=== PATIENT | male | born 1970 | race Caucasian/White ===

== ENCOUNTER 2017-06-19 07:25 | Observation (INO) | payer OTHER, MEDICAID ==
[2017-06-19] VITALS (8 sets, daily range): BP systolic 115–151; BP diastolic 65–85; PULSE 88–106; RESP 18–20; TEMP 97.1–97.8; O2SAT 95–98
[~2017-06-19] VITALS: Ht 185.4 cm; Wt 129.0 kg
[~2017-06-19 07:25] MED LIST: CETI10 PO; DICY20TA10 PO; GLIP2.5T6 PO; LORA0.5T PO; PROT40TA PO; RANI150 PO; SIME1CAP14 PO; SUCR1TAB PO; TRAM50 PO
--- NOTE | 2017-06-19 09:57 | HHI.HP ---
[facility] Non-Staff Admission Diagnosis Chest pain Diagnoses: (1) Chest pain Diagnosis: Principal Chief Complaint: Chest pain Travel History International Travel<30 Days: No Contact w/Intl Traveler <30 Da: No Traveled to Known Affected Are: No History of Present Illness Written by Claudia Ybarra, acting as scribe for Dr. Warren on 06/19/17 at 09:46. Mr. Ulloa is a 47-year-old male patient with a known medical history of fatty liver disease, GERD, prediabetes and anxiety who presented to the ED with complaints of chest pain. Patient states that the chest pain woke him up out of sleep. Pain was substernal, sharp in nature, and radiated to his back and neck. Admits to associated diaphoresis, dyspnea, nausea and lightheadedness. Denies any vomiting. Patient states this pain occurs at random times of the day, does not relate to certain activities. Denies any aggravating or relieving factors. Patient does admit to hospital admission 1.5 years ago for similar complaints and at that time had a cardiac work up with stress testing which was reportedly unremarkable. Patient also had a GI workup at that time with EGD and colonoscopy which showed fatty liver disease. Does take OTC Prilosec and Zantac as needed, denies any recent GI complaints. Denies any recent nausea, vomiting or diarrhea. Denies any recent fever, chills, cough, shortness of breath, headache or dysuria. Review of Systems Constitutional: DENIES: Chills Eyes: DENIES: Blurred vision, Vision loss Respiratory: COMPLAINS OF: Shortness of breath, DENIES: Cough Cardiovascular: COMPLAINS OF: Chest pain, Palpitations, DENIES: Syncope Gastrointestinal: COMPLAINS OF: Abdominal pain, Nausea, DENIES: Black stools, Constipation, Diarrhea, Vomiting Psychiatric: COMPLAINS OF: Anxiety Except as stated in HPI: all other systems reviewed are Neg Past Family Social History Past Medical History GERD Fatty liver disease Prediabetes Anxiety Past Surgical History EDG x 3 Colonoscopy x 2. Reported Medications Active Ultram (Tramadol HCl) 50 Mg Tab 50 Mg PO Q6H PRN FOR PAIN Zantac (Ranitidine HCl) 150 Mg Tab 150 Mg PO BID 90 Days Reported Protonix (Pantoprazole Sodium) 40 Mg Tabdr 40 Mg PO DAILY Phazyme Maximum Strength (Simethicone) 250 Mg Cap 250 Mg PO DAILY Cetirizine Hcl 10 Mg Tab 10 Mg PO Lorazepam 0.5 Mg Tab 0.5 Mg PO BID Dicyclomine 20 mg (Dicyclomine HCl) 20 Mg Tab 20 Mg PO QID Sucralfate 1 Gm Tab 1 Gm PO QID Take with water on an empty stomach. To reduce the potential of adversely affecting the absorption of other drugs, take other drugs 2 hours prior to Sucralfate. Glipizide Er (Glipizide) 2.5 Mg Tab 2.5 Mg PO DAILYAC Allergies: Coded Allergies: iodine (Unverified Allergy, Unknown, 06/19/17) MUSCLE SPASMS potassium iodide (Unverified Allergy, Unknown, 06/19/17) MUSCLE SPASMS povidone-iodine (Unverified Allergy, Unknown, 06/19/17) MUSCLE SPASMS sodium iodide (Unverified Allergy, Unknown, 06/19/17) MUSCLE SPASMS sodium iodide (Unverified Allergy, Unknown, 06/19/17) MUSCLE SPASMS Family History Denies any significant family medical history. Social History Denies any tobacco, alcohol or illicit drug use. Physical Exam Vital Signs Vital Signs Date Time Temp Pulse Resp B/P (MAP) Pulse Ox O2 Delivery O2 Flow Rate FiO2 06/19/17 08:00 97.8 102 20 139/85 (103) 96 Physical Exam GENERAL: This is a well-nourished, well-developed male patient, lying in bed with no complaints of chest pain, in no apparent distress, on supplemental O2. SKIN: No rashes, ecchymoses or lesions. Warm and clammy. HEAD: Atraumatic. Normocephalic. Pupils equal round and reactive. Extraocular motions intact. No scleral icterus. No injection or drainage. Nose without bleeding. Airway patent. NECK: Trachea midline. No JVD. Supple. CARDIOVASCULAR: Regular rate and rhythm without murmurs, gallops, or rubs. RESPIRATORY: Clear to auscultation. Breath sounds equal bilaterally. No wheezes , rales, or rhonchi. GASTROINTESTINAL: Abdomen soft, round, non-tender, nondistended. No guarding. MUSCULOSKELETAL: Extremities without clubbing, cyanosis, or edema. No joint tenderness, effusion, or edema noted. NEUROLOGICAL: Awake and alert. Cranial nerves II through XII intact. Motor and sensory grossly within normal limits. Five out of 5 muscle strength in all muscle groups. Normal speech. Caprini VTE Risk Assessment Caprini VTE Risk Assessment: No/Low Risk (score <= 1) Caprini Risk Assessment Model Point Value = 1 Point Value = 2 Point Value = 3 Point Value = 5 Age 41-60 Minor surgery BMI > 25 kg/m2 Swollen legs Varicose veins or History of unexplained or recurrent spontaneous Oral contraceptives or hormone replacement Sepsis (< 1 month) Serious lung disease, including pneumonia (< 1 month) Abnormal pulmonary function Acute myocardial infarction Congestive heart failure (< 1 month) History of inflammatory bowel disease Medical patient at bed rest Age 61-74 Arthroscopic surgery Major open surgery (> 45 min) Laparoscopic surgery (> 45 min) Malignancy Confined to bed (> 72 hours) Immobilizing plaster cast Central venous access Age >= 75 History of VTE Family history of VTE Factor V Leiden Prothrombin [id number] Lupus anticoagulant Anticardiolipin antibodies Elevated serum homocysteine Heparin-induced thrombocytopenia Other congenital or acquired thrombophilia Stroke (< 1 month) Elective arthroplasty Hip, pelvis, or leg fracture Acute spinal cord injury (< 1 month) Prophylaxis Regimen Total Risk Factor Score Risk Level Prophylaxis Regimen 0-1 Low Early ambulation 2 Moderate Order ONE of the following: *Sequential Compression Device (SCD) *Heparin 5000 units SQ BID 3-4 Higher Order ONE of the following medications: *Heparin 5000 units SQ TID *Enoxaparin/Lovenox 40 mg SQ daily (WT < 150 kg, CrCl > 30 mL/min) *Enoxaparin/Lovenox 30 mg SQ daily (WT < 150 kg, CrCl > 10-29 mL/min) *Enoxaparin/Lovenox 30 mg SQ BID (WT < 150 kg, CrCl > 30 mL/min) AND/OR *Sequential Compression Device (SCD) 5 or more Highest Order ONE of the following medications: *Heparin 5000 units SQ TID (Preferred with Epidurals) *Enoxaparin/Lovenox 40 mg SQ daily (WT < 150 kg, CrCl > 30 mL/min) *Enoxaparin/Lovenox 30 mg SQ daily (WT < 150 kg, CrCl > 10-29 mL/min) *Enoxaparin/Lovenox 30 mg SQ BID (WT < 150 kg, CrCl > 30 mL/min) AND *Sequential Compression Device (SCD) Assessment and Plan Problem List: (1) Chest pain ICD Code: R07.9 - Chest pain, unspecified Status: Acute Plan: Patient admitted to the chest pain center. Serial EKGs and serial troponins. Troponins flat. EKGs reviewed showing NSR, HR WNL, slight RBBB, no effect on ST segment. Supportive care. Supplemental O2 to keep sats >92%. Code Status This note was transcribed by scribe [Claudia Ybarra]. I, Dr. Ruddy Warren personally performed the history, physical exam, and medical decision making; and confirmed the accuracy of the information in the transcribed note. Authenticated by Dr. Ruddy Warren on 06/19/17 at 11:47. Claudia Ybarra Jun 19, 2017 09:57 Ruddy Warren MD Jun 19, 2017 11:47
--- NOTE | 2017-06-19 10:37 | EKG ---
Date Performed: 06/19/2017 Time Performed: 09:17:37 PTAGE: 47 years EKG: SINUS TACHYCARDIA LEFT AXIS DEVIATION VOLTAGE CRITERIA FOR LVH PROBABLE LATERAL MYOCARDIAL INFARCTION ABNORMAL ECG PREVIOUS TRACING : 04/05/2016 11.23 No change from previous tracing noted. DOCTOR: Dawit Cole Interpretating Date/Time 06/19/2017 10:36:48
[2017-06-19] MEDS ORDERED: ONDANSETRON HCL 4 MG/2 ML VIAL IVP PRN (11:15)
[2017-06-19] MEDS ORDERED: MORPHINE SULFATE 4 MG/ML INJ IV PUSH PRN ×2 (11:15)
[2017-06-19] MEDS ORDERED: SODIUM CHLORIDE 0.9% FLUSH 10 ML FLUSH IV FLUSH PRN (11:15)
[2017-06-19] MEDS ORDERED: MAGNESIUM HYDROXIDE SUSP 30 ML CUP PO PRN (11:15)
[2017-06-19] MEDS ORDERED: ONDANSETRON HCL 4 MG/2 ML VIAL IV PUSH PRN (11:15)
[2017-06-19] MEDS ORDERED: NALOXONE HCL 0.4 MG/ML AMP IV PUSH PRN (11:15)
[2017-06-19] MEDS: ACETAMINOPHEN 325 MG TAB PO PRN ×2 (12:15→20:16)
[2017-06-19] MEDS ORDERED: REGADENOSON INJ 0.4 MG/5 ML SYR IV ONE (13:18)
--- NOTE | 2017-06-19 15:22 | RADRPT ---
EXAM DATE/TIME: 06/19/2017 12:59 [place] COMPARISON: No previous studies available for comparison. INDICATIONS : Substernal chest pain. Angina. DOSE: 35 mCi Tc99m Myoview at stress. 11 mCi Tc99m Myoview at rest. 0.4 mg Lexiscan STRESS SYMPTOMS: Head pressure. EJECTION FRACTION: 60% MEDICAL HISTORY : Diabetes mellitus type 2. SURGICAL HISTORY : None. ENCOUNTER: Initial ACUITY: 1 day PAIN SCALE: 4/10 LOCATION: Substernal chest TECHNIQUE: The patient underwent pharmacologic stress with infusion of prescribed dose. Continuous ECG tracing was monitored during stress. Gated SPECT imaging was performed after stress and conventional SPECT i maging was performed at rest. The examination was performed on a SPECT/CT scanner, both attenuation and non-corrected datasets were reviewed. FINDINGS: DISTRIBUTION: The maximum perfused segment at stress is in the septal wall. PERFUSION STUDY: The pattern of perfusion at stress shows 20% redistribution in the high and mid lateral wall. GATED STUDY: There is intact wall motion and thickening without hypokinetic or dyskinetic segments. CONCLUSION: 1. Redistribution in the high lateral wall concerning for area of ischemia in the circumflex territor y. 2. Adequate wall motion throughout with estimated ejection fraction of 60%. RISK CATEGORY: Intermediate (1-3% Annual Mortality Rate) Ted Goldman MD on June 19, 2017 at 15:06 Board Certified Radiologist. This report was verified electronically.
--- NOTE | 2017-06-19 16:06 | TR ---
Date Performed: 06/19/2017 Time Performed: 13:27:56 DOCTOR: Yvon Davis DRUG LIST: CLINICAL HISTORY: REASON FOR TEST: REASON FOR ENDING: OBSERVATION: CONCLUSION: Lexiscan stress test was performed under standard four minute protocol. Radionuclid e was injected one minute prior to ending the test. No electrocardiographic abormalities were present to suggest ischemia. Nuclear imaging and interpretation are pending. COMMENTS:
--- NOTE | 2017-06-19 18:43 | MB ---
cc: ELIZ NEFF DATE OF CONSULTATION 06/19/[address] Warren REASON FOR CONSULTATION Evaluate for shortness of breath, hypoxia. HISTORY OF THE PRESENT ILLNESS Mr. Ulloa is a pleasant 47-year-old obese male with a history of chest pain going on for the last 1 year or so. His chest pain is mostly at rest. He finally came to the hospital because around 11 o'clock he woke up with chest pain which was mild chest pain, not radiating to anywhere. He felt very weak, dizzy and tired. He did not have any syncope or presyncope. Because of his worsening of symptoms he came to the hospital. He had a workup done. His troponin was slightly high and he had a myocardial perfusion test done, which shows he has redistribution in the high lateral wall concerning for area of ischemia. The patient was transferred to [facility] for cardiac catheterization. He denies any wheezing. Denies any asthma, emphysema. No hypertension or diabetes. He does admit that while he is at work sometimes he feels very hot at that time his speech gets slurred and he starts having change in his voice and has stuffy ears but it lasts hours or so. Once he takes a cold shower his feeling gets better. The patient has been to the hospital multiple times for this chest pain, three times in this hospital, two times in [place] and [facility] and he also has been to [facility] where primarily he was being worked up for his LANGE. PAST MEDICAL HISTORY Significant for: 1. A history of liver disease secondary to LANGE. 2. History of hypertension. MEDICATIONS He is currently taking: Morphine for pain. ALLERGIES HE IS ALLERGIC TO IODINE. SOCIAL HISTORY He is , works in construction. History of smoking in the past. History of alcohol use which he quit 2 years ago. No drug use. He works in construction. FAMILY HISTORY He is . He has one child. REVIEW OF SYSTEMS He has lost about 40 pounds of weight on his own which he has gained back now. He does admit to snoring, increased tired during daytime. No known asthma. No coronary artery disease. No deep venous thrombosis or pulmonary embolism. No seizure, stroke or epilepsy. PHYSICAL EXAMINATION GENERAL: Well-developed, well-nourished male not in any acute distress. VITAL SIGNS: Blood pressure 136/81, heart rate 102, respirations 20, temperature 97.1. HEENT: Examination unremarkable. NECK: Supple. JVP not raised. CHEST: Air entry equal bilaterally. No rhonchi. CARDIOVASCULAR: S1, S2 normal. ABDOMEN: Benign. EXTREMITIES: No edema. CENTRAL NERVOUS SYSTEM: Alert and oriented times three. No focal deficit. LABORATORY FINDINGS WBC 6.5, hemoglobin 14.4, hematocrit 41.9. MCV 90, platelet count 258. Sodium 144, potassium 3.7, chloride 109, CO2 29, BUN 13. Creatinine 0.9. IMPRESSION 1. Chest pain. Need to rule out ischemia. 2. Shortness of breath due to mild hypoxia. No pulmonary embolism. Possible from the underlying restrictive lung disease. 3. Obesity hypoventilation syndrome. 4. History suggestive of sleep apnea. PLAN He is going to go for cardiac catheterization. Will Check ABG PFT He will also need a sleep study as an outpatient. Further treatment will depend on the course in the hospital. Thank you Dr. Warren for this consultation. MD JAMEL Reilly/LUDMILA /6:09 PM /6:25 PM [place]
[2017-06-19 20:10] LABS: BLOOD GAS BASE EXCESS 1.5 mmol/L (-2-2); BLOOD GAS CARBOXYHEMOGLOBIN 1.2 % (0-4); BLOOD GAS HCO3 26 mmol/L (22-26); BLOOD GAS METHEMOGLOBIN 1.1 % (0-2); BLOOD GAS O2 HGB SATURATION 92 % (90-100); BLOOD GAS OXYGEN CONTENT 19.3 Vol % (12.0-20.0); BLOOD GAS PCO2 41 mmHG (38-42); BLOOD GAS PO2 72 mmHG (61-120); BLOOD GAS TOTAL HGB 14.8 G/DL (12.0-16.0); CRITICAL VALUE NO; DRAW SITE LT RADIAL; FIO2 21 %; NUMBER OF ARTERIAL PUNCTURES 1; STAT NO; TEMP CORR TO 98.6; ULNAR PULSE PRESENT
[2017-06-19] MEDS: SODIUM CHLORIDE 0.9% FLUSH 10 ML FLUSH IV FLUSH SCH (20:16)
[2017-06-20] VITALS (15 sets, daily range): BP systolic 107–124; BP diastolic 55–77; PULSE 75–96; RESP 18; TEMP 97.6–98; O2SAT 96–98
[2017-06-20 05:47] LABS: AUTOMATED NEUTROPHIL # 11.1 TH/MM3 (1.8-7.7); BASOPHIL % 0.2 % (0.0-2.0); EOSINOPHIL % 0.2 % (0.0-4.0); HEMATOCRIT 41.3 % (39.0-51.0); HEMO FLAGS DIFF FINAL; LYMPH % 15.6 % (9.0-44.0); LYMPHOCYTE # 2.3 TH/MM3 (1.0-4.8); MEAN CORPUSCULAR HEMOGLOBIN 30.9 PG (27.0-34.0); MONO % 7.3 % (0.0-8.0); NEUT % 76.7 % (16.0-70.0); PLATELET COUNT 262 TH/MM3 (150-450); RED BLOOD COUNT 4.55 MIL/MM3 (4.50-5.90); RED CELL DISTRIBUTION WIDTH 13.2 % (11.6-17.2); WHITE BLOOD COUNT 14.4 TH/MM3 (4.0-11.0)
[2017-06-20 05:57] LABS: ALT (GPT) 41 U/L (12-78); ANION GAP 8 MEQ/L (5-15); AST (GOT) 17 U/L (15-37); BICARBONATE 28.1 MEQ/L (21.0-32.0); BLOOD UREA NITROGEN 14 MG/DL (7-18); CHLORIDE 104 MEQ/L (98-107); GLOMERULAR FILTRATION RATE 109 ML/MIN (>89); SODIUM (NA) 140 MEQ/L (136-145)
[2017-06-20 05:59] LABS: ALKALINE PHOSPHATASE 72 U/L (45-117); TOTAL BILIRUBIN ADULT 1.2 MG/DL (0.2-1.0)
[2017-06-20] MEDS ORDERED: LORA1TAB12 PO (06:19)
[2017-06-20] MEDS ORDERED: PRIL20TA2 (06:21)
[2017-06-20] MEDS ORDERED: CLAR10CA3 PO (06:22)
[2017-06-20] MEDS: SODIUM CHLORIDE 0.9% FLUSH 10 ML FLUSH IV FLUSH SCH (08:07)
[2017-06-20] MEDS ORDERED: diphenhydrAMINE HCL 50 MG CAP PO ONE (08:45)
[2017-06-20] MEDS ORDERED: HYDROCORTISONE SOD SUCCINATE 100 MG VIAL IV PUSH ONE (09:00)
--- NOTE | 2017-06-20 09:07 | HHI.PR ---
Subjective Remarks Pt was admitted to [facility] on 06/19/17 He had an abnormal Lexiscan which noted redistribution in the high lateral wall concerning for area of ischemia in the circumflex territory. Adequate wall motion throughout with estimated ejection fraction of 60% Pt was transferred to [facility] for Cardiology evaluation and [facility] Objective Vitals Vital Signs Date Time Temp Pulse Resp B/P (MAP) Pulse Ox O2 Delivery O2 Flow Rate FiO2 06/20/17 08:05 78 06/20/17 07:40 97.9 75 18 124/77 (93) 98 06/20/17 07:40 85 06/20/17 06:11 80 06/20/17 05:03 85 06/20/17 04:02 85 06/20/17 03:28 97.6 90 18 114/58 (76) 96 06/20/17 03:00 83 06/20/17 02:02 81 06/20/17 01:05 82 06/19/17 23:55 18 06/19/17 23:00 88 06/19/17 22:30 97.7 106 18 151/83 (105) 97 06/19/17 21:20 20 06/19/17 20:37 96 Nasal Cannula 2.00 06/19/17 20:00 97.5 103 20 115/75 (88) 97 06/19/17 16:00 97.1 102 20 136/81 (99) 98 06/19/17 12:00 97.2 101 18 119/65 (83) 95 06/19/17 09:47 100 Result Diagram: 06/20/1751906/20/17519 Other Results Laboratory Tests Test 06/19/17 09:15 06/19/17 19:55 06/20/17 05:20 Troponin I LESS THAN 0.02 NG/ML Blood Gas Puncture Site LT RADIAL Blood Gas Patient Temperature 98.6 Blood Gas HCO3 26 mmol/L Blood Gas Base Excess 1.5 mmol/L Blood Gas Oxygen Saturation 92 % Arterial Blood pH 7.41 Arterial Blood Partial Pressure CO2 41 mmHG Arterial Blood Partial Pressure O2 72 mmHG Arterial Blood Oxygen Content 19.3 Vol % Arterial Blood Carboxyhemoglobin 1.2 % Arterial Blood Methemoglobin 1.1 % Blood Gas Hemoglobin 14.8 G/DL Blood Gas Inspired Oxygen 21 % White Blood Count 14.4 TH/MM3 Red Blood Count 4.55 MIL/MM3 Hemoglobin 14.0 GM/DL Hematocrit 41.3 % Mean Corpuscular Volume 91.0 FL Mean Corpuscular Hemoglobin 30.9 PG Mean Corpuscular Hemoglobin Concent 34.0 % Red Cell Distribution Width 13.2 % Platelet Count 262 TH/MM3 Mean Platelet Volume 7.3 FL Neutrophils (%) (Auto) 76.7 % Lymphocytes (%) (Auto) 15.6 % Monocytes (%) (Auto) 7.3 % Eosinophils (%) (Auto) 0.2 % Basophils (%) (Auto) 0.2 % Neutrophils # (Auto) 11.1 TH/MM3 Lymphocytes # (Auto) 2.3 TH/MM3 Monocytes # (Auto) 1.1 TH/MM3 Eosinophils # (Auto) 0.0 TH/MM3 Basophils # (Auto) 0.0 TH/MM3 CBC Comment DIFF FINAL Differential Comment Blood Urea Nitrogen 14 MG/DL Creatinine 0.77 MG/DL Random Glucose 111 MG/DL Total Protein 7.0 GM/DL Albumin 3.5 GM/DL Calcium Level 8.6 MG/DL Alkaline Phosphatase 72 U/L Aspartate Amino Transf (AST/SGOT) 17 U/L Alanine Aminotransferase (ALT/SGPT) 41 U/L Total Bilirubin 1.2 MG/DL Sodium Level 140 MEQ/L Potassium Level 4.0 MEQ/L Chloride Level 104 MEQ/L Carbon Dioxide Level 28.1 MEQ/L Anion Gap 8 MEQ/L Estimat Glomerular Filtration Rate 109 ML/MIN Imaging Last Impressions Myocardial Perfusion Scan Nuc Med 06/19/17 0000 Signed Impressions: Service Date/Time: Monday, June 19, 2017 12:59 - CONCLUSION: 1. Redistribution in the high lateral wall concerning for area of ischemia in the circumflex territory. 2. Adequate wall motion throughout with estimated ejection fraction of 60%%. RISK CATEGORY: Intermediate (1-3%% Annual Mortality Rate) Ted Goldman MD A/P Problem List: (1) Chest pain ICD Codes: R07.9 - Chest pain, unspecified Status: Acute Plan: - Pt is a 47 y/o male with fatty liver, GERD, prediabetes and anxiety who presented to the ED at [facility] on 06/19/17 with complaints of chest pain. The chest pain woke him up out of sleep, described as substernal, sharp in nature, and radiated to his back and neck. +Associated diaphoresis, dyspnea, nausea and lightheadedness. Does not relate to certain activities. - Patient was admitted to the chest pain center. - Serial troponin were negative. - EKGs reviewed showing NSR, HR WNL, slight RBBB, no effect on ST segment. - Lexiscan (06/19) --> Redistribution in the high lateral wall concerning for area of ischemia in the circumflex territory. Adequate wall motion throughout with estimated ejection fraction of 60% - Pt was transferred to [facility] for Cardiology evaluation and [facility] - Pain control PRN - Antiemetics PRN - Await [facility] today - Supportive care (2) Hypoxia ICD Codes: R09.02 - Hypoxemia Plan: - Pt with some complaints of SOB and noted to be hypoxic requiring supplemental O2 - Pulmonary was consulted - Ischemic workup in progress - Pt felt to likely have some degree of restrictive lung disease/obesity hypoventilation syndrome/YAJAIRA - PFTs - Sleep study as an outpt Assessment and Plan Patient examined. Assessment and plan formulated with Norma Fregoso PA-C. I agree with the above. [facility] (06/20/17) with Dr. Pritchard. Angiographically normal study. Pt denies continued chest pain and requests discharge to home. PFTs performed by NOT interpreted. - obtain Holter. Pt can complete study at home & return device to [place]. Discharge to home today. f/u with PCP, Dr. Jennie Woo in 1 week. f/u with Dr. Chavarria in 2 weeks. Pt needs outpt sleep apnea testing. Problem Qualifiers (1) Chest pain: Qualified Codes: R07.9 - Chest pain, unspecified Norma Fregoso Jun 20, 2017 09:07 Sony Rodriguez DO Jun 20, 2017 15:15
[2017-06-20] MEDS ORDERED: HEPARIN SODIUM - IV 10,000 UNITS/10 ML VIAL ONE (09:38)
[2017-06-20] MEDS ORDERED: MIDAZOLAM HCL 2 MG/2 ML VIAL ONE (09:38)
[2017-06-20] MEDS ORDERED: HEPARIN-NS/PF INJ 1,000 ML ONE (09:38)
[2017-06-20] MEDS ORDERED: NITROGLYCERIN INJ 5 ML ONE (09:40)
--- NOTE | 2017-06-20 09:55 | MB ---
cc: DALE TENA DATE OF CONSULTATION: 06/20/2017 REASON FOR CONSULTATION Chest pain, abnormal stress test. HISTORY OF PRESENT ILLNESS This 47-year-old gentleman has a history of nonalcoholic steatohepatitis in addition to prediabetes. He presented to the emergency department with complaints of chest pain and presyncope. He states they he awoke yesterday evening with acute onset of substernal chest pain radiating towards his neck. It was associated with diaphoresis, nausea, lightheadedness and dyspnea. He states over the course of the past few months he has had several of these episodes, some are with exertion, some are nonexertional. He came into the emergency department at [place] and was admitted. CTA of the chest was unremarkable for unremarkable for pulmonary embolism. A stress test was performed which was abnormal. He was transferred to the [facility] for consideration of cardiac catheterization. PAST MEDICAL HISTORY 1. GERD. 2. LANGE (nonalcoholic steatohepatitis). 3. Prediabetes. 4. Anxiety. MEDICATIONS Reported medications: 1. Zantac. 2. Ultram. ALLERGIES IODINE. FAMILY HISTORY Denies any family history of early coronary disease or sudden cardiac . SOCIAL HISTORY Denies alcohol, tobacco or drug use. REVIEW OF SYSTEMS A 12-point review of systems was performed and negative unless otherwise noted in the history of present illness. PHYSICAL EXAMINATION VITAL SIGNS: Temperature 97, pulse 93, blood pressure 124/77 mmHg. GENERAL: Alert and oriented x3, in no acute distress. HEENT: Pupils are reactive to light and accommodation. Extraocular movements are intact. NECK: No jugular venous distention. No thyromegaly. No lymphadenopathy. No carotid bruits. LUNGS: Clear to auscultation bilaterally. CARDIOVASCULAR: Regular rate and rhythm without murmurs, rubs or gallops. ABDOMEN: Soft, nontender, nondistended. Good bowel sounds. No hepatosplenomegaly. EXTREMITIES: No clubbing, cyanosis or edema. Good peripheral pulses. NEUROLOGIC: Cranial nerves intact. Motor and sensory grossly intact. LABORATORY WBC 14.4, hemoglobin 14, platelet count 262. Sodium 140, potassium 4.0, BUN 14, creatinine 0.77/ Troponins negative. STRESS TEST High lateral wall ischemia, intermediate risk study, normal ejection fraction. PLAN Given the patient's symptoms in addition to abnormal stress test results, we discussed options which include cardiac catheterization. The patient is agreeable. I will make him n.p.o. after midnight. The risks, benefits and alternatives were discussed with the patient. Will continue with current medical therapy. MD BETTY Jo/GOYO /9:41 AM /9:51 AM
--- NOTE | 2017-06-20 10:21 | CATHPROC ---
[facility] HIS Report Study Information Study Number Admission Scheduled Start Study Start [id number] Jun 19 2017 4:28PM 06/20/2017 Jun 20 2017 9:37AM [place] [facility] Cardiac Catheterization Admit Source Facility Department Other [facility] - Electrodynamicist Physician and Clinical Staff Initial Mitul Huynh Kiss Setter Hand Arthur ÁlvarezRN Recorder Judit Olmedo,RT(R) Recorder Norma Stephens,LOS Scrub Didi Enrique,STOCK SPECULATOR TECH2 Procedures Performed Procedure Location (Site) Vessel Name Coronary Angiograms LCA Left Coronary Coronary Angiograms RCA Right Coronary L Heart Cath Wire insertion Radial (right) Radial Art. Equipment Time Snowboard Instructor Description Size Mfg Part Number Used/Scraped TRANSDUCER, TRUWAVE [id number] 09:43 ATKINS MESSINA * Used W/STOCKCOCK *[id number] *[id number] *[id number] 09:43 A's Child PACK, CCL CUSTOM * Used *[id number] 09:43 [employer]'s Child SUPPORT, ARTERIAL ADULT [id number] *[id number] Used [id number] 09:43 Wagon PACER PEN, SKIN DUAL W/ RULER * Used *[id number] BAND, RADIAL COMPRESSION TR [id number] 10:15 Seriously 29CM Used LARGE 29 *[id number] SHEATH, FR6 RADIAL PRELUDE 09:43 Seriously FR 6 [id number] Used EASE 11CM [id number] 09:43 Seriously WIRE, EXCHANGE 260CM 3MMJ 260CM Used *[id number] 09:43 NYCOMED OMNIPAQUE, 350 MG, 150ML 150ML [id number] Used [id number] 09:43 [facility] BLANKET,WARM AIR CCL * Used *[id number] History: Current Medications Medication Dosage/Unit Route Frequency Last Date/Time Taken Glypizide 2.5 mg History: Allergies Allergy Reaction potassium iodide sodium iodide iodine povidone-iodine History: Risk Factors Family History of Hypertension Dyslipidemia Previous ID Previous Heart Failure Premature CAD Yes No No No No Prior Valve Prior PCI Prior CABG Surgery No No No Cerebrovascular Peripheral Artery Chronic Lung On Dialysis Diabetes Disease Disease Disease No No No No No History: Symptoms/Diagnosis Selection Items Chest pain History: Stress Tests Stress or Imaging Studies Performed Yes Standard Exercise Stress Test No Stress Echo No Stress Test SPECT Stress Test SPECT Result Stress Test SPECT Ischemia Risk/Extent Yes Positive Intermediate Stress Test CMR No Cardiac CTA Coronary Calcium Score No No History: Other Disease Selection Items HTN History: Other Current Smoker No Labs Hgb (g/dl) Hct (%) WBC (l/cumm) Platelets (thousands) 11.60-17.00 35.00-51.00 4.00-11.00 150.00-450.00 14.0 41.3 14.4 262 Glucose (mg/dl) BUN (mg/dl) Creatinine (mg/dl) BUN:Creatinine (1:x) 74.00-106.00 7.00-18.00 0.50-1.30 10.00-20.00 111 14 0.7 20 Na (meq/l) K (meq/l) 136.00-145.00 3.50-5.10 140 4 Troponin I (ng/ml) CPK-MB (ng/ML) 0.02-0.05 0.50-3.60 0.02 Not Drawn Medication Medication Total Dose (Bolus/Oral) Medication Total Dosage/Unit 1% XYLOCAINE 5 mL FENTANYL 50 mcg HEPARIN 5000 units RADIAL COCKTAIL 1 mL (Bolus) VERSED 1 mg Medications (Bolus/Oral) Medication Time Given Dosage/Unit Administered By Reason VERSED 06/20/2017 9:59:00 AM 1 mg Arthur Álvarez 1 mg VERSED given in lab by Arthur Álvarez RN in Right Antecubital via Peripheral IV. Ordered by Mitul [place]. FENTANYL 06/20/2017 10:00:00 AM 50 mcg Arthur Álvarez 50 mcg FENTANYL given in lab by Arthur Álvarez RN in Right Antecubital via Peripheral IV. Ordered by Mitul Pritchard. 1% XYLOCAINE 06/20/2017 10:01:54 AM 5 mL Mitul Pritchard 5 mL 1% XYLOCAINE given in lab by Mitul Pritchard in Right Radial via Subcutaneous. Ordered by Mitul Pritchard. Ntg 200mcg Verapamil 2.5mg Heparin RADIAL COCKTAIL 06/20/2017 10:06:17 AM 1 mL (Bolus) Mitul Pritchard 2000U 1 mL (Bolus) RADIAL COCKTAIL given in lab by Mitul Pritchard in Right Radial via Radial. Using [Soluti on Name]. Ordered by Mitul Pritchard. Reason: Nitro 200mcg HEPARIN 06/20/2017 10:06:56 AM 5000 units Arthur Álvarez 5000 units HEPARIN given in lab by Arthur Álvarez RN in Right Radial via Peripheral IV. Ordered by Mitul Andre. with radial cocktail Medication (Drip) Medication Time Given Dosage/Unit Concentration/Unit Diluent (ml) Solutio n IV Solutions 06/20/2017 9:39:25 AM 0 mL (IV) 1000 NaCl .9 Patient arrived on IV Solutions in Right Antecubital via Peripheral IV. Pump/Drip Flow = 20 ml/hr usi ng NaCl .9. Chronological Log Time Study Chronological Log 9:30:00 Patient arrived via Bed. 9:39:06 Patient Name, D.O.B, / Armband Verified By R.N. Vitals capture started with the following parameters, Patient=Adult, Interval=5 min, Initial Pr euqrpu=532 mmHg, 9:39:07 Deflation Rate=5 mmHg, Cuff placed on Left Arm 9:39:08 Consent signed by the physician and the patient and verified by the Electrodynamicist staff. 9:39:09 Pre-op and post- op instructions given; patient acknowledges understanding of instructions. 9:39:10 Verbal Stimulation=2 Physical Stimulation=2 Airway=2 Respiration=2 TOTAL=8. (0=absent, 1=shen ited, 2=present) 9:39:11 Allens test performed on the right radial and ulnar artery. 9:39:12 Patient has been NPO for Less than 6Hrs. 9:39:12 Skin Breakdown-none 9:39:14 Patient Warmer Placed on the Table. 9:39:17 A # 20 IV was noted in the Antecubital (right). Grade = 0 9:39:25 Patient arrived on IV Solutions in Right Antecubital via Peripheral IV. Pump/Drip Flow = 20 ml/hr using NaCl .9. 9:39:43 Reference ECG taken 9:40:10 HR=87 bpm, PDMA=547/75 mmhg, SpO2=99.0 %, Resp=18 B/min, Pain=0, Radha=10, Garibay=2 9:43:22 Right Radial and groin(s) prepped with 2% chlorhexidine, and draped after a 3 min. waiting t erasmo. 9:43:31 MD arrived. 9:45:07 HR=90 bpm, MCHY=530/77 mmhg, SpO2=98.0 %, Resp=8 B/min, Pain=0, Radha=10, Garibay=2 9:50:02 HR=93 bpm, WGKN=752/75 mmhg, EyG6=786.0 %, Resp=8 B/min, Pain=0, Radha=10, Garibay=2 9:50:36 Pressure channel 1 zeroed. 9:55:05 HR=86 bpm, HDIG=267/69 mmhg, SpO2=98.0 %, Resp=0 B/min, Pain=0, Radha=10, Garibay=2 9:59:00 1 mg VERSED given in lab by Arthur Álvarez RN in Right Antecubital via Peripheral IV. Ordere d by Mitul Pritchard. 10:00:00 50 mcg FENTANYL given in lab by Arthur Álvarez RN in Right Antecubital via Peripheral IV. O rdered by Mitul Pritchard. 10:00:02 HR=90 bpm, GHTA=808/70 mmhg, SpO2=99.0 %, Resp=0 B/min, Pain=0, Radha=10, Garibay=2 Time Out. Correct patient, correct procedure, correct physician, power injector loaded with con trast with surgical team 10:01:19 present. Time Out Concurred by MD and individual staff in procedure. 10:01:52 Case Start 10:01:54 5 mL 1% XYLOCAINE given in lab by Mitul Pritchard in Right Radial via Subcutaneous. Ordered by Mitul Pritchard. 10:04:50 Access site was Right Radial Artery. 10:05:03 HR=88 bpm, MLKS=385/64 mmhg, Resp=9 B/min, Pain=0, Radha=10, Garibay=2 1 mL (Bolus) RADIAL COCKTAIL given in lab by Mitul Pritchard in Right Radial via Radial. Using [ Solution Name]. 10:06:17 Ordered by Mitul Pritchard. Reason: Nitro 200mcg A SHEATH, FR6 RADIAL PRELUDE EASE 11CM FR 6 was advanced into the Radial (right) using the Perc utaneous 10:06:24 technique. 5000 units HEPARIN given in lab by Arthur Álvarez RN in Right Radial via Peripheral IV. Ordered by Mitul Pritchard. with 10:06:56 radial cocktail 10:07:51 A WIRE, EXCHANGE 260CM 3MMJ 260CM was inserted via Radial (right). A JR 5.0 GUIDE CATHETER FR 6 was advanced over a wire. OMNIPAQUE, 350 MG, 150ML 150ML was used for 10:08:06 injections. 10:08:13 Wire removed Recorded Pressure: LV, HR=92, Condition=Condition 1 10:08:38 (Left Ventricle) LV 125/3/8 Recorded Pressure: LV, Ao, HR=90, Condition=Condition 1 10:08:47 (Left Ventricle) LV 123/7/10, (Aorta) Ao 123/92/107 10:09:35 The RCA was injected and visualized at various angles. OMNIPAQUE, 350 MG, 150ML 150ML use d. 10:09:45 Reference ECG taken After removing the current catheter a JL 3.5 INFINITI CATHETER FR 6 was advanced over a WIRE, EXCHANGE 260CM 10:09:54 3MMJ 260CM. 10:10:02 HR=91 bpm, KBZA=688/65 mmhg, SpO2=96.0 %, Resp=15 B/min, Pain=0, Radha=10, Garibay=2 Recorded Pressure: Ao, HR=96, Condition=Condition 1 10:11:31 (Aorta) Ao 123/93/107 10:11:47 The LCA was injected and visualized at various angles. OMNIPAQUE, 350 MG, 150ML 150ML use d. 10:12:15 A WIRE, EXCHANGE 260CM 3MMJ 260CM was inserted via Radial (right). 10:12:29 Catheter(s) removed without difficulty 10:12:51 Case End Radial Compression Device Used. 12 mLs of air placed in BAND, RADIAL COMPRESSION TR LARGE 29 2 9CM. Affected 10:14:07 hand 96 % O2 saturation. 10:15:04 HR=92 bpm, RENN=472/61 mmhg, SpO2=96.0 %, Resp=21 B/min, Pain=0, Radha=10, Garibay=2 10:15:10 No case complications noted. 10:15:11 Cine recording checked. 10:16:21 [facility]PCU called. Spoke to Zayra MAD[place] 10:16:35 Bedside Report will be given. 10:16:41 Verbal Stimulation=2 Physical Stimulation=2 Airway=2 Respiration=2 TOTAL=8. (0=absent, 1=l imited, 2=present) 10:17:14 A Left Heart Cath was performed. 10:21:05 Patient moved to stretcher End Study - Contrast Media Used In Study Contrast Total Opened (mL) Total Used (mL) Total Wasted (mL) Omnipaque 150 40 110 End Study - Maximum Contrast Load Max Contrast Load (mL) 921.4 End Study - Radiation Exposure Fluoro Time (minutes) 1.3 End Study - Patient Disposition Complications Transferred To Interventional Outcome No Telemetry Bed successful
[2017-06-20] MEDS ORDERED: MISC INFORMATION XX ONE (10:30)
[2017-06-20] MEDS ORDERED: BACITRACIN OINT 0.9 GM PKT TOP ONE (10:45)
--- NOTE | 2017-06-20 10:49 | MA ---
cc: DALE TENA DATE: 06/20/2017 INDICATION Chest pain, abnormal stress test. PROCEDURE PERFORMED 1. Fluoroscopy with interpretation. 2. Coronary angiography. METHOD The risks, benefits and alternatives were discussed with the patient. The patient understood and consented to the procedure. The patient was brought into the catheterization lab and was placed on the catheterization table. The right wrist was prepped and draped in a sterile fashion. The right wrist was anesthetized with 2% lidocaine. The right radial artery was cannulated and a 6 Finnish, 7 cm sheath was placed without difficulty. LEFT HEART CATHETERIZATION Intraventricular hemodynamics measured at 120/10 mmHg. CORONARY ANGIOGRAPHY 1. The left main coronary is angiographically normal. 2. The left anterior descending coronary is a large caliber size vessel and angiographically normal. 3. The left circumflex gives rise to an obtuse marginal branch and is angiographically normal. 4. The right coronary is a dominant vessel giving rise to a posterior descending coronary. The right coronary is angiographically normal. CONCLUSIONS 1. Angiographically normal coronary arteries. 2. Normal left-sided filling pressures. PLAN The patient's symptoms are not cardiac in etiology. Stress test was a false positive. He can follow-up with his primary care physician. MD BETTY Jo/GOYO /10:28 AM /10:41 AM
[2017-06-20] MEDS ORDERED: HEPARIN-D5W 25,000 U/250 ML 250 ML IV PRN (11:30)
[2017-06-20] MEDS ORDERED: IOHEXOL 350 MG/ML 50 ML BTL (for Cath Lab) OTHER ONE (14:05)
--- NOTE | 2017-06-22 07:43 | HM ---
Date Performed: 06/20/2017 Time Performed: 16:56:00 HOOKUP DATE: 06/20/17 04:56:00 PM Tue ANALYSIS START TIME: 06/20/2017 5:01:00 PM ANALYSIS END TIME: 06/21/2017 4:45:02 PM PATIENT AGE: 47 PATIENT HEIGHT PATIENT WEIGHT DRUG LIST PATIENT DIAGNOSIS: chest pain TEST NARRATIVE: The patient's average heart rate was 80 BPM. Heart rates greater than 120 B PM were noted < 1% of the time. Heart rates less than 50 BPM were noted < 1% of the time. No shameka ses exceeding 2.0 seconds were noted. 2 ventricular ectopics, which represented < 1% of the total beat count, were noted. The highest ventricular ectopic frequency occurred from 06:00 AM to 07:00 A M Wed. During this time 1 VE(s) occurred. Ventricular ectopics were observed as 2 isolated beat(s) only. No couplets or runs were noted. 44 supraventricular ectopics, which represented < 1% of th e total beat count, were noted. The highest supraventricular ectopic frequency occurred from 02:00 A M to 03:00 AM Wed. During this time 16 SVE(s) occurred. No episodes of ST depression (defined as -1.0 mm or more) were noted in channel 1. No episodes of ST depression (defined as -1.0 mm or more) were noted in channel 2. No episodes of ST depression (defined as -1.0 mm or more) were noted in ch mimi 3. TEST INTERPRETATION: No symptoms are documented and no significant pauses are present. The under lying rhythm is normal sinus with average rate 80 BPM and range of 50-125 BPM. Rare PACs and PVCs are seen with rare atrial couplets. S igned by : Daniel Sanderson
--- NOTE | 2017-07-03 10:15 | RSPPFT ---
DATE OF PROCEDURE: 06/20/17 COMMENTS: Spirometry shows FVC of 5.4 at 97% of predicted, FEV1 of 4.6 at 101%, FEV1/FVC ratio is normal. Flow is normal at FEF 25, FEF 50, FEF 75 and FEF 25-75. Flow volume loop indicates a normal pattern. IMPRESSION: 1. Normal spirometry. 2. Post-bronchodilator study was not done.
== END 2017-06-20 17:25 | disposition home or self-care (01) ==
LOC: NEDDLT 07:25 → PH3B 07:35 → OBSVTOIN 16:28 → INTOOBSV 16:28 → HCPC 22:21
PROVIDERS: ADMIT Hospitalist; ATTEND Hospitalist
DX: R07.89 Other chest pain (principal); R07.2 Precordial pain; R94.31 Abnormal electrocardiogram [ECG] [EKG]; R06.02 Shortness of breath; R53.1 Weakness; R42 Dizziness and giddiness; I10 Essential (primary) hypertension; E66.2 Morbid (severe) obesity with alveolar hypoventilation; R94.39 Abnormal result of other cardiovascular function study; Z87.891 Personal history of nicotine dependence; R00.0 Tachycardia, unspecified
CPT/HCPCS: 36600; 70498; 71010; 71275; 74174; 78452; 80053; 82550; 82552; 82805; 83605; 83690; 83735; 83880; 84484; 85025; 85379; 85610; 85730; 86038; 87804; 93005; 93017; 93225; 93226; 93458; 94010; 96374; 96375; 99152; 99285; A9502; C1769; C1893; C9113; G0378; J1200; J1644; J1720; J2060; J2250; J2270; J2405; J2785; J2930; J3010; Q0163; Q9967